=== PATIENT | female | born 1945 | race Caucasian/White ===

== ENCOUNTER 2016-08-20 13:22 | Emergency (ER) | payer MEDICARE, OTHER ==
[~2016-08-20] VITALS: Ht 160 cm; Wt 98.9 kg
[~2016-08-20 13:22] MED LIST: AMLO10TA2 PO; ASPI-586 PO; CHOL100048 PO; CINN500C2 PO; ENAL10TA PO; GLIP5TAB13 PO; LEVO75TA6 PO; LOVA40TA2 PO; METF1000 PO; MULT1TAB69 PO; OMG1KC PO; OXYC-197 PO; PIOG15TA22 PO; VITA400C58 PO
--- NOTE | 2016-08-20 14:22 | ED Fall/Injury ---
General Chief Complaint: Lower Extremity Stated Complaint: LT ANKLE INJ//FALL Nursing Triage Note: PT REPORTS TRIPPING ON SIDEWALK AND INJURING L ANKLE AND R PINKY. SHE DENIES HITTING HER HEAD OR ANY OTHER INJURY. SHE DENIES LOC. Source: patient Exam Limitations: no limitations History of Present Illness Time seen by provider: 14:22 Initial Comments 71-year-old female patient presents to the emergency Department with reports of left ankle pain and right pinky pain after tripping and falling on the sidewalk at home. Denies hitting her head. Does complain of mild right ankle pain. Denies loss of consciousness, headache, confusion. Location Injury Occurred: sidewalk outside home Occurred: this morning Injuries/Pain Location: upper extremity, lower extremity Context: tripped Loss of Consciousness: no loss of consciousness Modifying Factors: Worse With Movement Allergies and Home Medications Allergies Coded Allergies: No Known Drug Allergies (Unverified , 06/11/15) Home Medications Amlodipine Besylate 10 Mg Tablet, 10 MG PO DAILY, (Reported) Aspirin 81 Mg Tablet.dr, 81 MG PO HS, (Reported) Cholecalciferol (Vitamin D3) 1,000 Unit Capsule, 1,000 UNIT PO DAILY, (Reported) Cinnamon Bark 500 Mg Capsule, 500 MG PO BID, (Reported) Enalapril Maleate 10 Mg Tablet, 10 MG PO DAILY, (Reported) Glipizide 5 Mg Tablet, 5 MG PO HS, (Reported) Hydrocodone/Acetaminophen 1 Each Tablet, 1 EACH PO Q4H PRN for PAIN, #30 Ref 0 Prescribed by: SAVANNA ROJAS on 08/20/16 1522 Levothyroxine Sodium 75 Mcg Tablet, 75 MCG PO DAILY, (Reported) Lovastatin 40 Mg Tablet, 40 MG PO HS, (Reported) Metformin HCl 1,000 Mg Tablet, 1,000 MG PO BID, (Reported) Multivitamin 1 Each Tablet, 1 TAB PO HS, (Reported) [place] 3 Polyunsat Fatty Acids 1,000 Mg Cap, 1,000 MG PO DAILY, (Reported) Oxycodone HCl/Acetaminophen 1 Each Tablet, 1 EACH PO PRN, #60 Prescribed by: LONNIE MARSHALL on 06/19/15 0750 Pioglitazone HCl 15 Mg Tablet, 15 MG PO DAILY, (Reported) Vitamin E Mixed 400 Unit Capsule, 400 UNIT PO DAILY, (Reported) Constitutional: no symptoms reported Eyes: No Symptoms Reported Ears, Nose, Mouth, Throat: no symptoms reported Respiratory: No cough, No short of breath Cardiovascular: No chest pain, No palpitations Gastrointestinal: no symptoms reported Musculoskeletal: see HPI, No back pain, joint pain, joint swelling, No neck pain Skin: change in color (bruising to the rt hand and left ankle.) Psychiatric/Neurological: Denies Headache, Denies Numbness, Denies Paresthesia , Denies Seizure, Denies Tingling, Denies Weakness All Other Systems Reviewed Negative Unless Noted: Yes (Negative excepted noted.) Past Vfsewdv-Xlpuwk-Bpvazm Hx Patient Social History Alcohol Use: Occasionally Uses Recreational Drug Use: No Smoking Status: Never a Smoker 2nd Hand Smoke Exposure: No Recent Foreign Travel: No Contact w/Someone Who Travel: No Recent Infectious Disease Expo: No Recent Hopitalizations: No Immunizations Up To Date Tetanus Booster (TDap): More than 5yrs Date of Pneumonia Vaccine: Jun 11, 2011 Date of Influenza Vaccine: Nov 28, 2014 Surgeries HX Surgeries: Yes (kidney stone) Surgeries: Orthopedic Respiratory Hx Respiratory Disorders: No Cardiovascular Hx Cardiac Disorders: Yes Cardiac Disorders: High Cholesterol, Hypertension Neurological Hx Neurological Disorders: No Reproductive System Hx Reproductive Disorders: No Genitourinary Hx Genitourinary Disorders: Yes Genitourinary Disorders: Kidney Stones Gastrointestinal Hx Gastrointestinal Disorders: No Musculoskeletal Hx Musculoskeletal Disorders: Yes Musculoskeletal Disorders: Arthritis Endocrine Hx Endocrine Disorders: Yes Endocrine Disorders: Hypothyroidsim, Diabetes, Non-Insulin dep HEENT HX ENT Disorders: Yes (bilat cataract removal, ) Cancer Hx Cancer: No Psychosocial Hx Psychiatric Problems: No Integumentary HX Skin/Integumentary Disorder: No Blood Transfusions Hx Blood Disorders: No Reviewed Nursing Assessment Reviewed/Agree w Nursing PMH: Yes Family Medical History Significant Family History: No Pertinent Family Hx Family Medial History: Arthritis G8 BROTHER G8 SISTER Completed stroke 19 FATHER Diabetes mellitus G8 BROTHER G8 SISTER FH: breast cancer 19 MOTHER Hypertension G8 BROTHER Physical Exam Vital Signs Vital Sign - Last 12Hours 08/20/16 13:55 Temp 97.2 Pulse 74 Resp 16 B/P (MAP) 145/85 Pulse Ox 97 O2 Delivery Room Air Capillary Refill : Less Than 3 Seconds General Appearance: WD/WN, no apparent distress HEENT: PERRL/EOMI, pharynx normal, other (normocephalic, atraumatic.) Cardiovascular: normal peripheral pulses, regular rate, rhythm, no murmur Respiratory: lungs clear, normal breath sounds, no respiratory distress Peripheral Pulses: 2+ Dorsalis Pedis (R), 2+ Left Dors-Pedis (L), 2+ Radial Pulses (R), 2+ Radial Pulses (L) Extremities: normal capillary refill, pelvis stable, other (ecchymosis, swelling, and tenderness of the right fifth finger. Decreased range of motion right fifth finger. Left lateral ankle and right lateral ankle tender to palpation with mild swelling and ecchymosis.) Neurologic/Psychiatric: cellar packer II-XII nml as tested, no motor/sensory deficits, alert, normal mood/affect, oriented x 3 Skin: normal color, warm/dry, ecchymosis (right fifth finger, right lateral malleoli, and left lateral malleoli ecchymosis) Julita Coma Score Best Eye Response: (4) Open Spontaneously Best Verbal Response: (5) Oriented Best Motor Response: (6) Obeys Commands [place] Total: 15 Progress/Results/Core Measures Results/Orders My Orders Orders - SAVANNA ROJAS Ankle, Bilateral, 3 Views (08/20/16 14:30) Hand, Right, 3 Views (08/20/16 14:30) Ct Head Wo (08/20/16 14:30) Acetaminophen Tablet/Caplet (Tylenol T (08/20/16 14:30) Steplite (08/20/16 15:29) Vital Signs/I&O Vital Sign - Last 12Hours 08/20/16 13:55 Temp 97.2 Pulse 74 Resp 16 B/P (MAP) 145/85 Pulse Ox 97 O2 Delivery Room Air Blood Pressure Mean: 105 Diagnostic Imaging Diagonstic Imaging: CT Plain Films/CT/US/NM/MRI: head Comments FINDINGS: There are diffuse atrophic changes. There are no extra-axial fluid collections. No intracranial hemorrhage. No intracranial mass or mass effect. No midline shift. The ventricles are normal in size and position. There are no acute parenchymal abnormalities in the brain. IMPRESSION: Atrophic changes with no acute intracranial abnormality. Dictated on workstation # [id number] Reviewed: Reviewed by Me (radiology report reviewed by me) Diagonstic Imaging: Xray Plain Films/CT/US/NM/MRI: hand Comments FINDINGS: There is an acute fracture of the base of the fifth proximal phalanx. There are no other fractures visualized. There is diffuse degenerative change of the interphalangeal joints as well as the radiocarpal joint and first carpometacarpal joint. IMPRESSION: Acute nondisplaced fracture of base of fifth proximal phalanx. Underlying degenerative findings. Dictated on workstation # [id number] Reviewed: Reviewed by Me (radiology report reviewed by me) Diagonstic Imaging: Xray Plain Films/CT/US/NM/MRI: ankle (bilateral ankle x-ray) Comments FINDINGS: Left: There is a nondisplaced fracture of the tip of the medial malleolus on the left. There is a nondisplaced oblique fracture through the distal fibular shaft as well. The ankle mortise appears in good alignment. Posterior malleolus is intact. Right: No fractures are demonstrated. Ankle mortise is in good alignment. Moderate degenerative changes are noted both medially and laterally. There is mild soft tissue swelling. IMPRESSION: 1. Bimalleolar fracture of the left ankle with overall good alignment. 2. Right ankle shows soft tissue swelling and degenerative changes with no evidence of fracture. Dictated on workstation # [id number] Reviewed: Reviewed by Me (radiology report reviewed by me) Departure Communication Progress Notes Diagnostic study findings discussed with the patient. Patient placed in a steplite boot and aluminum finger splint. Patient does have a walker at home which she can use for assistance with ambulation. Patient to call for appointment time for follow-up with Dr. Huggins as an outpatient. Impression Impression: Primary Impression: Ankle fracture, bimalleolar, closed Qualified Codes: S82.842A - Displaced bimalleolar fracture of left lower leg, initial encounter for closed fracture Additional Impressions: Fracture of finger of right hand Qualified Codes: S62.646A - Nondisplaced fracture of proximal phalanx of right little finger, initial encounter for closed fracture Fall on same level from slipping, tripping or stumbling Qualified Codes: W01.0XXA - Fall on same level from slipping, tripping and stumbling without subsequent striking against object, initial encounter Disposition: 01 HOME, SELF-CARE Condition: Improved Departure-Patient Inst. Decision time for Depature: 15:21 Referrals: FANTASMA HUGGINS MD, WILLIAM J DO (PCP/Family) Primary Care Physician Patient Instructions: Ankle Fracture (DC), Finger Fracture (DC) Add. Discharge Instructions: All discharge instructions reviewed with patient and/or family. Voiced understanding. Medications as instructed. No ibuprofen or Aleve. Elevate the right hand and left ankle on pillows, ice pack for 20 minute intervals as needed for pain. Boot and finger splint as instructed. Follow-up with Dr. Huggins as an outpatient in the next 7 days. Call for appointment time Tuesday. Return to the emergency department for worsened symptoms or any other concerns. Scripts Hydrocodone/Acetaminophen (Hydrocodon -Acetaminophen 5-325) 1 Each Tablet 1 EACH PO Q4H Y for PAIN, #30 TAB 0 Refills Prov: SAVANNA ROJAS 08/20/16 SAVANNA ROJAS Aug 20, 2016 14:22
[2016-08-20] MEDS ORDERED: ACETAMINOPHEN 325 MG TABLET/CAPLET (TYLENOL) PO STA (14:30)
--- NOTE | 2016-08-20 15:11 | Diagnostic Imaging Report ---
INDICATION: Fall. TECHNIQUE: A noncontrast brain CT was performed. FINDINGS: There are diffuse atrophic changes. There are no extra-axial fluid collections. No intracranial hemorrhage. No intracranial mass or mass effect. No midline shift. The ventricles are normal in size and position. There are no acute parenchymal abnormalities in the brain. IMPRESSION: Atrophic changes with no acute intracranial abnormality. Dictated by: Dictated on workstation # [id number]
--- NOTE | 2016-08-20 15:13 | Diagnostic Imaging Report ---
INDICATION: Fall with right hand pain. EXAMINATION: AP, oblique, and lateral views of the right hand are obtained. FINDINGS: There is an acute fracture of the base of the fifth proximal phalanx. There are no other fractures visualized. There is diffuse degenerative change of the interphalangeal joints as well as the radiocarpal joint and first carpometacarpal joint. IMPRESSION: Acute nondisplaced fracture of base of fifth proximal phalanx. Underlying degenerative findings. Dictated by: Dictated on workstation # [id number]
--- NOTE | 2016-08-20 15:15 | Diagnostic Imaging Report ---
INDICATION: Rolled both ankles. EXAMINATION: Three views of bilateral ankles. FINDINGS: Left: There is a nondisplaced fracture of the tip of the medial malleolus on the left. There is a nondisplaced oblique fracture through the distal fibular shaft as well. The ankle mortise appears in good alignment. Posterior malleolus is intact. Right: No fractures are demonstrated. Ankle mortise is in good alignment. Moderate degenerative changes are noted both medially and laterally. There is mild soft tissue swelling. IMPRESSION: 1. Bimalleolar fracture of the left ankle with overall good alignment. 2. Right ankle shows soft tissue swelling and degenerative changes with no evidence of fracture. Dictated by: Dictated on workstation # [id number]
[2016-08-20] MEDS ORDERED: HYDR-3812 PO (15:22)
[2016-08-20 15:41] VITALS: BP 145/85
--- OUTSIDE RECORDS SUMMARY | 2016-08-23 14:56 | XMS REPORT | Continuity of Care Document ---
Author Author [facility] Organization [facility] Address Unknown Phone Unavailable Allergies Active Description Code Type Severity Reaction Onset Reported/Identified Relationship to Patient Clinical Status Yes No Allergy Information Available [id number] Drug Allergy Unknown N/A 05/26/2015 Yes No Known Drug Allergies [id number] Drug Allergy Unknown N/ A 06/11/2015 Medications Problems Date Dx Coded Attending Type Code Diagnosis Diagnosed By JOANNA JOSHI, LONNIE Mazariegos Ot Z47.1 AFTERCARE FOLLOWING JOINT REPLACEMENT HORVATH JOANNA JOSHI, LONNIE Mazariegos Ot Z96.652 PRESENCE OF LEFT ARTIFICIAL KNEE JOINT 07/03/2014 Ot 611.89 07/03/2014 Ot V15.89 07/03/2014 Ot V76.12 07/03/2014 Ot 611.89 07/03/2014 Ot V15.89 07/03/2014 Ot V76.12 07/03/2014 Ot 733.90 07/03/2014 Ot V76.12 07/03/2014 COLBY MANCIA DO Ot V76.12 07/03/2014 COLBY MANCIA DO Ot V76.12 07/03/2014 COLBY MANCIA DO Ot 719.47 07/08/2014 Ot 611.89 07/08/2014 Ot V15.89 07/08/2014 Ot V76.12 07/08/2014 Ot 611.89 07/08/2014 Ot V15.89 07/08/2014 Ot V76.12 07/08/2014 Ot 733.90 07/08/2014 Ot V76.12 07/08/2014 COLBY MANCIA DO Ot V76.12 07/08/2014 COLBY MANCIA DO Ot V76.12 07/08/2014 COLBY MANCIA DO Ot 719.47 07/10/2014 Ot 611.89 07/10/2014 Ot V15.89 07/10/2014 Ot V76.12 07/10/2014 Ot 611.89 07/10/2014 Ot V15.89 07/10/2014 Ot V76.12 07/10/2014 Ot 733.90 07/10/2014 Ot V76.12 07/10/2014 COLBY MANCIA DO Ot V76.12 07/10/2014 COLBY MANCIA DO Ot V76.12 07/10/2014 COLBY MANCIA DO Ot 719.47 07/10/2014 PADILLA MANCIA METER TESTER POLYPHASE Ot 719.47 JOINT PAIN-ANKLE 07/10/2014 PADILLA MANCIA METER TESTER POLYPHASE Ot V57.1 PHYSICAL THERAPY NEC 07/11/2014 PADILLA MANCIA METER TESTER POLYPHASE Ot 719.47 07/11/2014 PADILLA MANCIA METER TESTER POLYPHASE Ot V57.1 07/12/2014 PADILLA MANCIA METER TESTER POLYPHASE Ot 719.47 07/12/2014 PADILLA MANCIA METER TESTER POLYPHASE Ot V57.1 07/13/2014 Ot 611.89 07/13/2014 Ot V15.89 07/13/2014 Ot V76.12 07/13/2014 Ot 611.89 07/13/2014 Ot V15.89 07/13/2014 Ot V76.12 07/13/2014 Ot 733.90 07/13/2014 Ot V76.12 07/13/2014 COLBY MANCIA DO Ot V76.12 07/13/2014 COLBY MANCIA DO Ot V76.12 07/13/2014 COLBY MANCIA DO Ot 719.47 07/27/2014 COLBY MANCIA DO Ot 719.47 08/15/2014 COLBY MANCIA DO Ot 719.47 09/17/2014 Ot 611.89 09/17/2014 Ot V15.89 09/17/2014 Ot V76.12 09/17/2014 Ot 611.89 09/17/2014 Ot V15.89 09/17/2014 Ot V76.12 09/17/2014 Ot 733.90 09/17/2014 Ot V76.12 09/17/2014 COLBY MANCIA DO Ot V76.12 09/17/2014 COLBY MANCIA DO Ot V76.12 09/17/2014 MANCIARICKIE LOVETT COLBY Hill Ot 719.47 10/10/2014 MANCIARICKIE LOVETT COLBY [place] Ot V76.12 10/15/2014 GAVINO LOVETT COLBY [place] Ot 793.80 05/26/2015 Ot 611.89 05/26/2015 Ot V15.89 05/26/2015 Ot V76.12 05/26/2015 Ot 733.90 05/26/2015 Ot V76.12 05/26/2015 GAVINO LOVETT [place] Ot V76.12 05/26/2015 MANCIARICKIE LOVETT COLBY [place] Ot V76.12 05/26/2015 GAVINO LOVETT [place]BY [place] Ot 719.47 05/26/2015 GAVINO LOVETT COLBY [place] Ot V76.12 05/26/2015 GAVINO LOVETT [place] Ot 793.80 05/26/2015 GAVINO LOVETT [place] Ot Z01.810 06/11/2015 LONNIE MARSHALL MD Ot M17.12 UNILATERAL PRIMARY OSTEOARTHRITIS, LEFT 06/11/2015 LONNIE MARSHALL MD Ot R53.83 OTHER FATIGUE 06/11/2015 LONNIE MARSHALL MD Ot Z01.810 ENCOUNTER FOR PREPROCEDURAL CARDIOVASCUL 06/11/2015 LONNIE MARSHALL MD Ot Z01.811 ENCOUNTER FOR PREPROCEDURAL RESPIRATORY 06/11/2015 LONNIE MARSHALL MD Ot Z01.812 ENCOUNTER FOR PREPROCEDURAL LABORATORY E 06/11/2015 LONNIE MARSHALL MD Ot Z11.2 ENCOUNTER FOR SCREENING FOR OTHER BACTER 06/11/2015 LONNIE MARSHALL MD Ot M17.12 06/11/2015 LONNIE MARSHALL MD Ot R53.83 06/11/2015 LONNIE MARSHALL MD Ot Z01.810 06/11/2015 LONNIE MARSHALL MD Ot Z01.811 06/11/2015 LONNIE MARSHALL MD Ot Z01.812 06/11/2015 LONNIE MARSHALL MD Ot Z11.2 06/18/2015 COLBY MANCIA DO Ot Z01.810 ENCOUNTER FOR PREPROCEDURAL CARDIOVASCUL 06/23/2015 LONNIE MARSHALL MD Ot D64.9 ANEMIA, UNSPECIFIED 06/23/2015 LONNIE MARSHALL MD Ot E03.9 HYPOTHYROIDISM, UNSPECIFIED 06/23/2015 LONNIE MARSHALL MD Ot E11.9 TYPE 2 DIABETES MELLITUS WITHOUT COMPLIC 06/23/2015 LONNIE MARSHALL MD Ot E78.5 HYPERLIPIDEMIA, UNSPECIFIED 06/23/2015 LONNIE MARSHALL MD Ot E87.5 HYPERKALEMIA 06/23/2015 LONNIE MARSHALL MD Ot I10 ESSENTIAL (PRIMARY) HYPERTENSION 06/23/2015 LONNIE MARSHALL MD Ot M17.12 UNILATERAL PRIMARY OSTEOARTHRITIS, LEFT 06/23/2015 LONNIE MARSHALL MD Ot M17.9 OSTEOARTHRITIS OF KNEE, UNSPECIFIED 06/23/2015 LONNIE MARSHALL MD Ot R09.02 HYPOXEMIA 06/23/2015 LONNIE MARSHALL MD Ot T40.605A ADVERSE EFFECT OF UNSPECIFIED NARCOTICS, 07/07/2015 Ot 611.89 OTHER SPECIFIED DISORDERS OF BREAST 07/07/2015 Ot V15.89 HX-HEALTH HAZARDS NEC 07/07/2015 Ot V76.12 OTH SCREEN MAMMO-MALIGN NEOPLASM OF [place] 07/07/2015 Ot 733.90 BONE CARTILAGE DIS NOS 07/07/2015 Ot V76.12 OTH SCREEN MAMMO-MALIGN NEOPLASM OF [place] 07/07/2015 COLBY MANCIA DO Ot V76.12 OTH SCREEN MAMMO-MALIGN NEOPLASM OF [place] 07/07/2015 COLBY MANCIA DO, Ot V76.12 OTH SCREEN MAMMO-MALIGN NEOPLASM OF [place] 07/07/2015 COLBY MANCIA DO Ot 719.47 JOINT PAIN-ANKLE 07/07/2015 COLBY MANCIA DO, Ot V76.12 OTH SCREEN MAMMO-MALIGN NEOPLASM OF [place] 07/07/2015 COLBY MANCIA DO Ot 793.80 UNSPEC ABNORMAL MAMMOGRAM 07/07/2015 COLBY MANCIA DO Ot Z01.810 ENCOUNTER FOR PREPROCEDURAL CARDIOVASCUL 07/10/2015 COLBY MANCIA DO, Ot Z01.810 ENCOUNTER FOR PREPROCEDURAL CARDIOVASCUL 08/21/2015 LONNIE MARSHALL MD Ot Z47.1 AFTERCARE FOLLOWING JOINT REPLACEMENT HORVATH 08/21/2015 LONNIE MARSHALL MD Ot Z96.652 PRESENCE OF LEFT ARTIFICIAL KNEE JOINT 08/22/2015 LONNIE MARSHALL MD Ot Z47.1 AFTERCARE FOLLOWING JOINT REPLACEMENT HORVATH 08/22/2015 LONNIE MARSHALL MD Ot Z96.652 PRESENCE OF LEFT ARTIFICIAL KNEE JOINT 09/17/2015 LONNIE MARSHALL MD Ot Z47.1 AFTERCARE FOLLOWING JOINT REPLACEMENT HORVATH 09/17/2015 LONNIE MARSHALL MD Ot Z96.652 PRESENCE OF LEFT ARTIFICIAL KNEE JOINT 10/16/2015 Ot 611.89 OTHER SPECIFIED DISORDERS OF BREAST 10/16/2015 Ot V15.89 HX-HEALTH HAZARDS NEC 10/16/2015 Ot V76.12 OTH SCREEN MAMMO-MALIGN NEOPLASM OF [place] 10/16/2015 Ot 733.90 BONE CARTILAGE DIS NOS 10/16/2015 Ot V76.12 OTH SCREEN MAMMO-MALIGN NEOPLASM OF [place] 10/16/2015 COLBY MANCIA DO, Ot V76.12 OTH SCREEN MAMMO-MALIGN NEOPLASM OF [place] 10/16/2015 COLBY MANCIA DO Ot V76.12 OTH SCREEN MAMMO-MALIGN NEOPLASM OF [place] 10/16/2015 COLBY MANCIA DO Ot 719.47 JOINT PAIN-ANKLE 10/16/2015 COLBY MANCIA DO, Ot V76.12 OTH SCREEN MAMMO-MALIGN NEOPLASM OF [place] 10/16/2015 COLBY MANCIA DO Ot 793.80 UNSPEC ABNORMAL MAMMOGRAM 10/16/2015 COLBY MANCIA DO Ot Z01.810 ENCOUNTER FOR PREPROCEDURAL CARDIOVASCUL 10/16/2015 COLBY MANCIA DO Ot Z12.31 ENCNTR SCREEN MAMMOGRAM FOR MALIGNANT NE 10/16/2015 COLBY MANCIA DO Ot Z12.31 ENCNTR SCREEN MAMMOGRAM FOR MALIGNANT NE 10/17/2015 COLBY MANCIA DO, Ot Z12.31 ENCNTR SCREEN MAMMOGRAM FOR MALIGNANT NE 10/29/2015 PADILLA MANCIA Ot R92.8 OTH ABN AND INCONCLUSIVE FINDINGS ON DX 11/07/2015 COLBY MANCIA DO, Ot Z12.31 ENCNTR SCREEN MAMMOGRAM FOR MALIGNANT NE 11/20/2015 MANCIA, PADILLA L METER TESTER POLYPHASE Ot R92.8 OTH ABN AND INCONCLUSIVE FINDINGS ON DX 11/26/2015 PADILLA MANCIA METER TESTER POLYPHASE Ot R92.8 OTH ABN AND INCONCLUSIVE FINDINGS ON DX 08/20/2016 Ot 733.90 BONE CARTILAGE DIS NOS 08/20/2016 Ot V76.12 OTH SCREEN MAMMO-MALIGN NEOPLASM OF [place] 08/20/2016 COLBY MANCIA DO Ot V76.12 OTH SCREEN MAMMO-MALIGN NEOPLASM OF [place] 08/20/2016 COLBY MANCIA DO Ot V76.12 OTH SCREEN MAMMO-MALIGN NEOPLASM OF [place] 08/20/2016 COLBY MANCIA DO Ot 719.47 JOINT PAIN-ANKLE 08/20/2016 COLBY MANCIA DO Ot V76.12 OTH SCREEN MAMMO-MALIGN NEOPLASM OF [place] 08/20/2016 COLBY MANCIA DO Ot 793.80 UNSPEC ABNORMAL MAMMOGRAM 08/20/2016 COLBY MANCIA DO Ot Z01.810 ENCOUNTER FOR PREPROCEDURAL CARDIOVASCUL 08/20/2016 COLBY MANCIA DO Ot Z12.31 ENCNTR SCREEN MAMMOGRAM FOR MALIGNANT NE 08/20/2016 PADILLA MANCIA METER TESTER POLYPHASE Ot R92.8 OTH ABN AND INCONCLUSIVE FINDINGS ON DX Procedures Code Description Performed By Performed On [id number] REPLACE OF L KNEE JT WITH SYNTH SUB, JEY 06/18/2015 Results Encounters ACCT No. Visit Date/Time Discharge Status Pt. Type Provider Facility Loc./Unit Complaint [id number] 08/20/2016 13:24:00 2016 15:41:00 DIS Emergency SAVANNA CRAMER [facility] ER LT ANKLE INJ//FALL [id number] 08/01/2015 10:15:00 2015 08:49:00 DIS Outpatient LONNIE MARSHALL MD [facility] REHAB S/P L TKR [id number] 06/18/2015 05:55:00 2015 10:45:00 DIS Inpatient LONNIE MARSHALL MD [facility] 4TH LEFT KNEE SEVERE OSTEOARTHRITIS [id number] 06/11/2015 09:19:00 2015 10:30:00 DIS Outpatient LONNIE MARSHALL MD [facility] PREOP LEFT KNEE SEVERE OSTEOARTHRITIS [id number] 09/20/2014 08:04:00 2014 23:59:59 CLS Outpatient COLBY MANCIA DO [facility] RAD ABNORMAL MAMMO [id number] 09/17/2014 12:38:00 2014 23:59:59 CLS Outpatient COLBY MANCIA DO [facility] RAD SCREENING [id number] 07/10/2014 15:54:00 2014 17:00:00 DIS Outpatient PADILLA MANCIA [facility] REHAB R ANKLE PAIN [id number] 06/26/2014 16:52:00 2014 23:59:59 CLS Outpatient COLBY MANCIA DO [facility] RAD RT ANKLE PAIN, [id number] 08/23/2013 10:28:00 2013 23:59:59 CLS Outpatient COLBY MANCIA DO [facility] RAD SCREENING [id number] 08/22/2012 10:30:00 2012 23:59:59 CLS Outpatient COLBY MANCIA DO [facility] RAD SCREENING [id number] 10/27/2015 08:11:00 ACT Outpatient PADILLA MANCIA [facility] RAD ABNORMAL MAMMO- DIAGNOSTIC [id number] 10/16/2015 10:02:00 ACT Outpatient COLBY MANCIA DO [facility] RAD SCREENING [id number] 06/20/2015 09:14:00 PEN Preadmit KENNEDI MILLAN DO [id number] 05/26/2015 06:42:00 ACT Outpatient COLBY MANCIA DO [facility] CARD PRE OP TESTING FOR KNEE REPLACEMENT [id number] 08/12/2011 11:26:00 Document Registration [id number] 05/10/2011 10:20:00 Document Registration [id number] 07/16/2010 10:12:00 Document Registration [id number] 06/04/2009 14:07:00 Document Registration
--- OUTSIDE RECORDS SUMMARY | 2016-08-23 14:56 | XMS REPORT ---
Author Author TRACEY PASCAL [facility] eClinicalWorks Address Unknown Phone Unavailable Care Team Providers Care Automobile Bumper Straightener Name Role Phone TRACEY PASCAL CP Unavailable Allergies, Adverse Reactions, Alerts Substance Reaction Event Type N.K.D.A. Info Not Available Non Drug Allergy Problems Problem Type Condition Code Onset Dates Condition Status Assessment Encounter for dental examination Z01.20 Active Problem Encounter for dental examination Z01.20 Active Medications Medication Code System Code Instructions Start Date End Date Status Dosage Aspirin [facility] [id number] 81 MG Orally Once a day 1 tablet Metformin HCl [facility] [address]-00 1000 MG Orally Twice a day 1 tablet with meals Lovastatin [facility] [address]-06 40 MG Orally Once a day 1 tablet with a meal Amlodipine Besylate [facility] [address]-15 10 MG Orally Once a day 1 tablet Levothyroxine Sodium [facility] [address]-26 50 MCG Orally Once a day 1 tablet Pioglitazone HCl [facility] [address]-70 15 MG Orally Once a day 1 tablet GlipiZIDE [facility] [address]-58 5 MG Orally Once a day 1 tablet Enalapril Maleate [facility] [address]-08 10 MG Orally Once a day 1 tablet Procedures Procedure Coding System Code Date Periodontal maint procedures CPT-4 D4910 Oct 15, 2015 Vital Signs Date/Time: Oct 15, 2015 Blood Pressure Diastolic 76 mmHg Blood Pressure Systolic 118 mmHg Results No Known Results Summary Purpose eClinicalWorks Submission
== END 2016-08-20 15:41 | disposition home or self-care (01) ==
LOC: EDUNIT# 13:22 → ER 13:24
DX: S82.842A Displaced bimalleolar fracture of left lower leg, initial encounter for closed fracture (principal); S62.646A Nondisplaced fracture of proximal phalanx of right little finger, initial encounter for closed fracture; E03.9 Hypothyroidism, unspecified; I10 Essential (primary) hypertension; E11.9 Type 2 diabetes mellitus without complications; Z87.39 Personal history of other diseases of the musculoskeletal system and connective tissue; Z79.82 Long term (current) use of aspirin; Z79.84 Long term (current) use of oral hypoglycemic drugs; W01.0XXA Fall on same level from slipping, tripping and stumbling without subsequent striking against object, initial encounter; Y92.009 Unspecified place in unspecified non-institutional (private) residence as the place of occurrence of the external cause
CPT/HCPCS: 70450; 73130; 99283

== ENCOUNTER → 2016-11-16 | Outpatient (CLI) | payer MEDICARE, OTHER ==
[~2016-11-16] MED LIST changes: +HYDR-3812 PO
--- NOTE | 2016-11-17 18:50 | Diagnostic Imaging Report ---
Bilateral screening mammogram 2D views with tomosynthesis. The current study was also evaluated with a Computer Aided Detection (CAD) system. INDICATION: Screening. No current complaints stated on the questionnaire. COMPARISON: 10/26/2015. FINDINGS: The breasts are composed of heterogeneously dense parenchyma which may decrease mammographic sensitivity. There are calcifications seen in both breasts similar to the prior exams and there is a biopsy clip in the upper aspect of the left breast seen. Allowing for technique and positional differences, no suspicious change is seen. IMPRESSION: Dense breasts with no definite change. ACR BI-RADS Category 2: Benign findings. Result letter will be mailed to the patient. Note: At least 10% of breast cancer is not imaged by mammography. Dictated by: Dictated on workstation # [id number]
== END ==
LOC: RAD 09:37
PROVIDERS: ATTEND Internal Medicine
DX: Z12.31 Encounter for screening mammogram for malignant neoplasm of breast (principal)
CPT/HCPCS: 77067

== ENCOUNTER 2017-03-30 22:29 | Emergency (ER) | payer MEDICARE, OTHER ==
[~2017-03-30] VITALS: Ht 160 cm; Wt 95.3 kg
[~2017-03-30 22:29] MED LIST changes: +ACHD5005 PO; -HYDR-3812 PO
--- OUTSIDE RECORDS SUMMARY | 2017-03-30 23:42 | XMS REPORT ---
Author Author DANTE HYMAN [facility] Address [address] [place] [address] Care Team Providers Care Asp Net Developer Name Role Phone DANTE HYMAN Unavailable PROBLEMS Type Condition ICD9-CM Code [id number] Code Onset Dates Condition Status SNOMED Code Problem Encounter for dental examination Z01.20 Active [id number] ALLERGIES No Information SOCIAL HISTORY Never Assessed PLAN OF CARE VITAL SIGNS MEDICATIONS Unknown Medications RESULTS No Results PROCEDURES Procedure Date Ordered Result Body Site ZOSTER (ZOSTAVAX) Apr 16, 2016 SINGLE IMMUNIZATION ADMIN Apr 16, 2016 IMMUNIZATIONS Vaccine Route Administration Date Status ZOSTER (ZOSTAVAX) SC Subcutaneous Apr 16, 2016 Administered MEDICAL (GENERAL) HISTORY Type Description Date Medical History High Blood pressure Medical History Thyroid Problems Medical History Diabetes Type II Hospitalization History Kidney stones 2007
--- OUTSIDE RECORDS SUMMARY | 2017-03-30 23:43 | XMS REPORT | Continuity of Care Document ---
Author Author [facility] Organization [facility] Address Unknown Phone Unavailable Allergies Active Description Code Type Severity Reaction Onset Reported/Identified Relationship to Patient Clinical Status Yes No Allergy Information Available [id number] Drug Allergy Unknown N/A 2015 Yes No Known Drug Allergies [id number] Drug Allergy Unknown N/A 06/11/2015 Medications There is no data. Problems Date Dx Coded Attending Type Code [...] MANCIA DO Ot 719.47 07/10/2014 PADILLA MANCIA SPEECH CLINICIAN Ot 719.47 JOINT PAIN-ANKLE 07/10/2014 PADILLA MANCIA SPEECH CLINICIAN Ot V57.1 PHYSICAL THERAPY NEC 07/11/2014 PADILLA MANCIA SPEECH CLINICIAN Ot 719.47 07/11/2014 PADILLA MANCIA SPEECH CLINICIAN Ot V57.1 07/12/2014 PADILLA MANCIA SPEECH CLINICIAN Ot 719.47 07/12/2014 PADILLA MANCIA SPEECH CLINICIAN Ot V57.1 07/13/2014 Ot 611.89 07/13/2014 Ot [...] 09/17/2014 COLBY MANCIA DO Ot V76.12 09/17/2014 GAVINO LOVETT COLBY Hill Ot V76.12 09/17/2014 MANCIA DO COLBY Hill Ot 719.47 10/10/2014 MANCIA DO COLBY Hill Ot V76.12 10/15/2014 MANCIARICKIE LOVETT COLBY Hill Ot 793.80 05/26/2015 Ot 611.89 05/26/2015 Ot V15.89 05/26/2015 Ot V76.12 05/26/2015 Ot 733.90 05/26/2015 Ot V76.12 05/26/2015 MANCIA DO COLBY Hill Ot V76.12 05/26/2015 MANCIA DO COLBY [place] Ot V76.12 05/26/2015 MANCIARICKIE LOVETT COLBY [place] Ot 719.47 05/26/2015 GAVINO LOVETT COLBY Hill Ot V76.12 05/26/2015 GAVINO LOVETT COLBY Hill Ot 793.80 05/26/2015 GAVINO LOVETT COLBY Hill Ot Z01.810 06/11/2015 JOANNA JOSHI, LONNIE Mazariegos Ot M17.12 UNILATERAL PRIMARY OSTEOARTHRITIS, LEFT 06/11/2015 JOANNA JOSHI, LONNIE Mazariegos Ot R53.83 OTHER FATIGUE 06/11/2015 JOANNA JOSHI, LONNIE Mazariegos Ot Z01.810 ENCOUNTER FOR PREPROCEDURAL CARDIOVASCUL 06/11/2015 [...] Ot 719.47 JOINT PAIN-ANKLE 07/07/2015 COLBY MANCIA DO Ot V76.12 OTH SCREEN MAMMO-MALIGN NEOPLASM OF [place] 07/07/2015 COLBY MANCIA DO Ot 793.80 UNSPEC ABNORMAL MAMMOGRAM 07/07/2015 COLBY MANCIA DO Ot Z01.810 ENCOUNTER FOR PREPROCEDURAL CARDIOVASCUL 07/10/2015 COLBY MANCIA DO, Ot Z01.810 ENCOUNTER FOR PREPROCEDURAL CARDIOVASCUL 08/21/2015 LONNIE MARSHALL MD Ot Z47.1 AFTERCARE FOLLOWING JOINT REPLACEMENT HORVATH 08/21/2015 JOANNA JOSHI, LONNIE Mazariegos Ot Z96.652 PRESENCE OF LEFT ARTIFICIAL KNEE JOINT 08/22/2015 JOANNA JOSHI, LONNIE Mazariegos Ot Z47.1 AFTERCARE [...] ENCOUNTER FOR PREPROCEDURAL CARDIOVASCUL 10/16/2015 COLBY MANCIA DO, Ot Z12.31 ENCNTR SCREEN MAMMOGRAM FOR MALIGNANT NE 10/16/2015 COLBY MANCIA DO, Ot Z12.31 ENCNTR SCREEN MAMMOGRAM FOR MALIGNANT NE 10/17/2015 COLBY MANCIA DO, Ot Z12.31 ENCNTR SCREEN MAMMOGRAM FOR MALIGNANT NE 10/29/2015 PADILLA MANCIA Ot R92.8 OTH ABN AND INCONCLUSIVE FINDINGS ON DX 11/07/2015 COLBY MANCIA DO, Ot Z12.31 ENCNTR SCREEN MAMMOGRAM FOR MALIGNANT NE 11/20/2015 PADILLA MANCIA L SPEECH CLINICIAN Ot R92.8 OTH ABN AND INCONCLUSIVE FINDINGS ON DX 11/26/2015 PADILLA MANCIA [facility] Ot R92.8 OTH ABN AND INCONCLUSIVE FINDINGS ON DX 08/20/2016 SAVANNA CRAMER Ot E03.9 HYPOTHYROIDISM, UNSPECIFIED 08/20/2016 SAVANNA CRAMER Ot E11.9 TYPE 2 DIABETES MELLITUS WITHOUT COMPLIC 08/20/2016 SAVANNA CRAMER Ot I10 ESSENTIAL (PRIMARY) HYPERTENSION 08/20/2016 SAVANNA CRAMER Ot M25.572 PAIN IN LEFT ANKLE AND JOINTS OF LEFT FO 08/20/2016 SAVANNA CRAMER Ot S62.646A NONDISP FX OF PROXIMAL PHALANX OF RIGHT 08/20/2016 SAVANNA CRAMER Ot S82.842A DISPLACED BIMALLEOLAR FRACTURE OF LEFT L 08/20/2016 SAVANNA CRAMER Ot W01.0XXA FALL SAME LEV FROM SLIP/TRIP W/O STRIKE 08/20/2016 SAVANNA CRAMER Ot Y92.[address] [facility] [address] IN [facility] NON-INSTITUT (PRIVATE 08/20/2016 SAVANNA CRAMER Ot Z79.82 [employer] (CURRENT) USE OF ASPIRIN 08/20/2016 SAVANNA CRAMER Ot Z79.84 [employer]CR[employer] CARPENTER (CURRENT) USE OF ORAL HYPOGLYC 08/20/2016 SAVANNA CRAMER Ot Z87.39 PERSONAL HISTORY OF DISEASES OF THE MS S 08/20/2016 Ot 733.90 BONE CARTILAGE DIS NOS [...] MAMMOGRAM FOR MALIGNANT NE 08/20/2016 PADILLA MANCIA Ot R92.8 OTH ABN AND INCONCLUSIVE FINDINGS ON DX 11/24/2016 COLBY MANCIA DO Ot Z12.31 ENCNTR SCREEN MAMMOGRAM FOR MALIGNANT NE 12/09/2016 COLBY MANCIA DO Ot Z12.31 ENCNTR SCREEN MAMMOGRAM FOR MALIGNANT NE Procedures Code Description Performed By Performed On [id number] REPLACE OF L KNEE JT WITH SYNTH SUB, JEY 06/18/2015 Results There is no data. Encounters ACCT No. Visit Date/Time Discharge Status Pt. Type Provider Facility Loc./Unit Complaint [id number] 11/16/2016 09:37:00 11/16/2016 23:59:59 CLS Outpatient COLBY MANCIA DO [facility] RAD SCREENING [id number] 08/20/2016 13:24:00 08/20/2016 15:41:00 DIS Emergency SAVANNA CRAMER [facility] ER LT ANKLE INJ//FALL [id number] 10/27/2015 08:11:00 10/27/2015 23:59:59 CLS Outpatient PADILLA MANCIA [facility] RAD ABNORMAL MAMMO- DIAGNOSTIC [id number] 10/16/2015 10:02:00 10/16/2015 23:59:59 CLS Outpatient COLBY MANCIA DO [facility] RAD SCREENING [id number] 08/01/2015 10:15:00 09/17/2015 08:49:00 DIS Outpatient LONNIE MARSHALL MD [facility] REHAB S/P L TKR [id number] 06/18/2015 05:55:00 06/23/2015 10:45:00 DIS Inpatient LONNIE MARSHALL MD [facility] 4TH LEFT KNEE SEVERE OSTEOARTHRITIS [id number] 06/20/2015 09:14:00 06/20/2015 23:59:59 CLS Preadmit KENNEDI MILLAN DOB [id number] 06/11/2015 09:19:00 06/11/2015 10:30:00 DIS Outpatient LONNIE MARSHALL MD [facility] PREOP LEFT KNEE SEVERE OSTEOARTHRITIS [id number] 05/26/2015 06:42:00 05/26/2015 23:59:59 CLS Outpatient COLBY MANCIA DO [facility] CARD PRE OP TESTING FOR KNEE REPLACEMENT [id number] 09/20/2014 08:04:00 09/20/2014 23:59:59 CLS Outpatient COLBY MANCIA DO [facility] RAD ABNORMAL MAMMO [id number] 09/17/2014 12:38:00 09/17/2014 23:59:59 CLS Outpatient COLBY MANCIA DO [facility] RAD SCREENING [id number] 07/10/2014 15:54:00 07/10/2014 17:00:00 DIS Outpatient PADILLA MANCIA [facility] REHAB R ANKLE PAIN [id number] 06/26/2014 16:52:00 06/26/2014 23:59:59 CLS Outpatient COLBY MANCIA DO [facility] RAD RT ANKLE PAIN, [id number] 08/23/2013 10:28:00 08/23/2013 23:59:59 CLS Outpatient COLBY MANCIA DO [facility] RAD SCREENING [id number] 08/22/2012 10:30:00 08/22/2012 23:59:59 CLS Outpatient COLBY MANCIA DO [facility] RAD SCREENING [id number] 08/12/2011 11:26:00 Document Registration [id number] 05/10/2011 10:20:00 Document Registration [id number] 07/16/2010 10:12:00 Document Registration [id number] 06/04/2009 14:07:00 Document Registration
[2017-03-31] MEDS ORDERED: NS IV 1000 ML 1,000 ML IV ONE (02:28)
[2017-03-31 02:36] LABS: BILIRUBIN,URINE NEGATIVE (NEGATIVE); CLARITY,URINE VERY CLOUDY; GLUCOSE, URINE (UA) 4+ (NEGATIVE); KETONES,URINE NEGATIVE (NEGATIVE); LEUKOCYTE ESTERASE ,URINE 3+ (NEGATIVE); NITRITE,URINE NEGATIVE (NEGATIVE); PH,URINE 5 (5-9); PROTEIN,URINE 3+ (NEGATIVE); UROBILINOGEN,URINE NORMAL (NORMAL)
[2017-03-31 02:37] LABS: BASOPHILS % (AUTO) 0 % (0-10); EOSINOPHILS % (AUTO) 0 % (0-10); HEMATOCRIT 40 % (35-52); HEMOGLOBIN 13.3 G/DL (11.5-16.0); LYMPHOCYTES # (AUTO) 1.1 X 10^3 (1.0-4.0); MEAN CORPUSCULAR HEMOGLOBIN 30 PG (25-34); MEAN CORPUSCULAR HGB CONC 34 G/DL (32-36); MEAN CORPUSCULAR VOLUME 89 FL (80-99); MEAN PLATELET VOLUME 10.6 FL (7.4-10.4); MONOCYTES # (AUTO) 0.6 X 10^3 (0.0-1.0); MONOCYTES % (AUTO) 5 % (0-12); NEUTROPHILS # (AUTO) 10.4 X 10^3 (1.8-7.8); PLATELET COUNT 287 10^3/uL (130-400); RED BLOOD COUNT 4.45 10^6/uL (4.35-5.85); RED CELL DISTRIBUTION WIDTH 14.7 % (10.0-14.5); WHITE BLOOD COUNT 12.1 10^3/uL (4.3-11.0)
[2017-03-31 02:38] LABS: COLOR,URINE BROWN
[2017-03-31 02:38] LABS: LYMPHOCYTES % (AUTO) 10 % (12-44); NEUTROPHILS % (AUTO) 85 % (42-75)
[2017-03-31] MEDS ORDERED: KETOROLAC 30 MG/ML VIAL IVP STA (02:40)
[2017-03-31 02:41] LABS: RBC,URINE TNTC /HPF
[2017-03-31 02:42] LABS: BACTERIA,URINE LARGE /HPF; SQUAMOUS EPITHELIAL CELL,UR RARE /HPF
[2017-03-31] MEDS ORDERED: ONDANSETRON 4 MG/2 ML (SDV) Z0FRAN IVP ONE (02:45)
[2017-03-31 02:49] LABS: ALBUMIN 4.2 GM/DL (3.2-4.5); BILIRUBIN,TOTAL 0.5 MG/DL (0.1-1.0); CALCIUM 9.9 MG/DL (8.5-10.1); CREATININE SERUM 1.47 MG/DL (0.60-1.30); POTASSIUM 4.7 MMOL/L (3.6-5.0); TOTAL PROTEIN 7.4 GM/DL (6.4-8.2)
[2017-03-31] MEDS ORDERED: RX-ONDANSETRON 4 MG ODT (ZOFRAN) PPK #4 PO STA (04:47)
[2017-03-31] MEDS ORDERED: TAMS0.4C98 PO (04:53)
[2017-03-31] MEDS ORDERED: HYDR-87 PO (04:53)
[2017-03-31] MEDS ORDERED: NITR-65 PO (04:53)
[2017-03-31] MEDS ORDERED: ONDA4TAB8 PO (04:53)
--- NOTE | 2017-03-31 04:53 | ED Abdominal Pain ---
General Chief Complaint: Abdominal/GI Problems Stated Complaint: ABD PAIN Nursing Triage Note: PT STATES RT SIDED ABDOMINAL PAIN RADIATING TO HER BACK. STATES NAUSEATED. STATES URINE HAS BEEN DARK IN COLOR Sepsis Screen: No Definite Risk Allergies and Home Medications Allergies Coded Allergies: No Known Drug Allergies (Unverified , 06/11/15) Home Medications Amlodipine Besylate 10 Mg Tablet, 10 MG PO DAILY, (Reported) Aspirin 81 Mg Tablet.dr, 81 MG PO HS, (Reported) Cholecalciferol (Vitamin D3) 1,000 Unit Capsule, 1,000 UNIT PO DAILY, (Reported) Cinnamon Bark 500 Mg Capsule, 500 MG PO BID, (Reported) Enalapril Maleate 10 Mg Tablet, 10 MG PO DAILY, (Reported) Glipizide 5 Mg Tablet, 5 MG PO HS, (Reported) Hydrocodone Bit/Acetaminophen 1 Each Tablet, 1 EACH PO Q4H PRN for PAIN, #30 Ref 0 Prescribed by: SAVANNA ROJAS on 08/20/16 1522 Levothyroxine Sodium 75 Mcg Tablet, 75 MCG PO DAILY, (Reported) Lovastatin 40 Mg Tablet, 40 MG PO HS, (Reported) Metformin HCl 1,000 Mg Tablet, 1,000 MG PO BID, (Reported) Multivitamin 1 Each Tablet, 1 TAB PO HS, (Reported) [place] 3 Polyunsat Fatty Acids 1,000 Mg Cap, 1,000 MG PO DAILY, (Reported) Oxycodone HCl/Acetaminophen 1 Each Tablet, 1 EACH PO PRN, #60 Prescribed by: LONNIE MARSHALL on 06/19/15 0750 Pioglitazone HCl 15 Mg Tablet, 15 MG PO DAILY, (Reported) Vitamin E Mixed 400 Unit Capsule, 400 UNIT PO DAILY, (Reported) Past Kcsabts-Vrhuem-Dgfrnz Hx Patient Social History Alcohol Use: Occasionally Uses Recreational Drug Use: No Smoking Status: Never a Smoker 2nd Hand Smoke Exposure: No Recent Foreign Travel: No Contact w/Someone Who Travel: No Recent Infectious Disease Expo: No Recent Hopitalizations: No Immunizations Up To Date Tetanus Booster (TDap): More than 5yrs Date of Pneumonia Vaccine: Jun 11, 2011 Date of Influenza Vaccine: Nov 25, 2016 Surgeries History of Surgeries: Yes (kidney stone) Surgeries: Orthopedic Respiratory History of Respiratory Disorde: No Cardiovascular History of Cardiac Disorders: Yes Cardiac Disorders: High Cholesterol, Hypertension Neurological History of Neurological Disord: No Reproductive System Hx Reproductive Disorders: No Genitourinary Genitourinary Disorders: Kidney Stones Gastrointestinal History of Gastrointestinal Di: No Musculoskeletal History of Musculoskeletal Dis: Yes Musculoskeletal Disorders: Arthritis Endocrine History of Endocrine Disorders: Yes Endocrine Disorders: Hypothyroidsim, Diabetes, Non-Insulin dep Cancer History of Cancer: No Psychosocial History of Psychiatric Problem: No Integumentary History of Skin or Integumenta: No Blood Transfusions History of Blood Disorders: No Family Medical History Significant Family History: No Pertinent Family Hx Family Medial History: Arthritis G8 BROTHER G8 SISTER Completed stroke 19 FATHER Diabetes mellitus G8 BROTHER G8 SISTER FH: breast cancer 19 MOTHER Hypertension G8 BROTHER Physical Exam Vital Signs VS - Last 72 Hours, by Label 03/31/17 01:18 Temp 97.6 Pulse 77 Resp 20 B/P (MAP) 175/101 (125) Pulse Ox 94 O2 Delivery Room Air Capillary Refill : Less Than 3 Seconds Progress/Results/Core Measures Results/Orders Lab Results Laboratory Tests Test 03/31/17 02:07 03/31/17 02:15 Range/Units Urine Color BROWN H Urine Clarity VERY CLOUDY H Urine pH 5 5-9 Urine Specific [place] 1.015 L 1.016-1.022 Urine Protein 3+ H NEGATIVE Urine Glucose (UA) 4+ H NEGATIVE Urine Ketones NEGATIVE NEGATIVE Urine Nitrite NEGATIVE NEGATIVE Urine Bilirubin NEGATIVE NEGATIVE Urine Urobilinogen NORMAL NORMAL MG/DL Urine Leukocyte Esterase 3+ H NEGATIVE Urine RBC (Auto) 5+ H NEGATIVE Urine RBC TNTC H /HPF Urine WBC 10-25 H /HPF Urine Squamous Epithelial Cells RARE /HPF Urine Crystals NONE /LPF Urine Bacteria LARGE H /HPF Urine Casts NONE /LPF Urine Mucus NEGATIVE /LPF Urine Culture Indicated YES White Blood Count 12.1 H 4.3-11.0 10^3/uL Red Blood Count 4.45 4.35-5.85 10^6/uL Hemoglobin 13.3 11.5-16.0 G/DL Hematocrit 40 35-52 % Mean Corpuscular Volume 89 80-99 FL Mean Corpuscular Hemoglobin 30 25-34 PG Mean Corpuscular Hemoglobin Concent 34 32-36 G/DL Red Cell Distribution Width 14.7 H 10.0-14.5 % Platelet Count 287 130-400 10^3/uL Mean Platelet Volume 10.6 H 7.4-10.4 FL Neutrophils (%) (Auto) 85 H 42-75 % Lymphocytes (%) (Auto) 10 L 12-44 % Monocytes (%) (Auto) 5 0-12 % Eosinophils (%) (Auto) 0 0-10 % Basophils (%) (Auto) 0 0-10 % Neutrophils # (Auto) 10.4 H 1.8-7.8 X 10^3 Lymphocytes # (Auto) 1.1 1.0-4.0 X 10^3 Monocytes # (Auto) 0.6 0.0-1.0 X 10^3 Eosinophils # (Auto) 0.0 0.0-0.3 10^3/uL Basophils # (Auto) 0.0 0.0-0.1 10^3/uL Sodium Level 139 135-145 MMOL/L Potassium Level 4.7 3.6-5.0 MMOL/L Chloride Level 104 98-107 MMOL/L Carbon Dioxide Level 20 L 21-32 MMOL/L Anion Gap 15 H 5-14 MMOL/L Blood Urea Nitrogen 24 H 7-18 MG/DL Creatinine 1.47 H 0.60-1.30 MG/DL Estimat Glomerular Filtration Rate 35 BUN/Creatinine Ratio 16 Glucose Level 392 H 70-105 MG/DL Calcium Level 9.9 8.5-10.1 MG/DL Total Bilirubin 0.5 0.1-1.0 MG/DL Aspartate Amino Transf (AST/SGOT) 15 5-34 U/L Alanine Aminotransferase (ALT/SGPT) 22 0-55 U/L Alkaline Phosphatase 94 40-136 U/L Total Protein 7.4 6.4-8.2 GM/DL Albumin 4.2 3.2-4.5 GM/DL Amylase Level 80 25-125 U/L Lipase 19 8-78 U/L My Orders Orders - BENJI HASTINGS DO Ct Abd/Pelvis Wo(Kidney Stone) (03/31/17 02:28) Amylase (03/31/17 02:28) Cbc With Automated Diff (03/31/17 02:28) Comprehensive Metabolic Panel (03/31/17 02:28) Lipase (03/31/17 02:28) Ua Culture If Indicated (03/31/17 02:28) Acute Abd Series (03/31/17 02:28) Saline Lock/Iv-Start (03/31/17 02:28) Saline Lock/Iv-Start (03/31/17 02:28) Ns Iv 1000 Ml (Sodium Chloride 0.9%) (03/31/17 02:28) Ketorolac Injection (Toradol Injection) (03/31/17 02:40) Ondansetron Injection (Zofran Injectio (03/31/17 02:45) Urine Culture (03/31/17 02:07) Medications Given in ED Current Medications Medications Dose Ordered Sig/Tete Route Start Time Stop Time Status Last Admin Dose Admin Ondansetron HCl 4 mg ONCE ONCE IVP 03/31/17 02:45 03/31/17 02:46 DC 03/31/17 03:15 4 MG Sodium Chloride 1,000 ml @ 0 mls/hr Q0M ONCE IV 03/31/17 02:28 03/31/17 02:31 DC 03/31/17 02:34 1,000 MLS/HR Vital Signs/I&O Vital Sign - Last 12Hours 03/31/17 01:18 Temp 97.6 Pulse 77 Resp 20 B/P (MAP) 175/101 (125) Pulse Ox 94 O2 Delivery Room Air Blood Pressure Mean: 125 Departure Impression Impression: Primary Impression: Right ureteral calculus Additional Impressions: UTI (urinary tract infection) Cholelithiasis Disposition: HOME, SELF-CARE Condition: Improved Departure-Patient Inst. Referrals: COLBY MANCIA DO (PCP/Family) Primary Care Physician JERMAN REEDER MD Patient Instructions: Kidney Stones (DC), Urinary Tract Infection, Adult (DC) Add. Discharge Instructions: LOTS OF FLUIDS STRAIN ALL URINE--RETURN ANY STONES TO UROLOGIST OFFICE FOLLOW UP WITH DR. REEDER OR UROLOGIST OF CHOICE THIS WEEK FOR FURTHER CARE OF KIDNEY STONES FOLLOW UP WITH DR. MONACO OR SURGEON OF CHOICE IN 1-2 WEEKS FOR FURTHER CARE OF GALLSTONES FOLLOW UP WITH DR. MANCIA NEEDED All discharge instructions reviewed with patient and/or family. Voiced understanding. Scripts Ondansetron (Zofran Odt) 4 Mg Tab.rapdis 4 MG PO Q4H for Nausea/Vomiting, #10 TAB Prov: BENJI HASTINGS DO 03/31/17 Hydrocodone/Ibuprofen (Hydrocodone-Ibuprofen 7.5-200) 1 Each Tablet 1-2 EACH PO Q4H for Pain, #20 TAB Prov: BENJI HASTINGS DO 03/31/17 Tamsulosin HCl (Flomax) 0.4 Mg Cap 0.4 MG PO DAILY, #10 CAP Prov: BENJI HASTINGS DO 03/31/17 Nitrofurantoin Monohyd/M-Cryst (Macrobid 100 mg Capsule) 100 Mg Capsule 100 MG PO BID, #20 CAP Prov: BENJI HASTINGS DO 03/31/17 BENJI HASTINGS DO Mar 31, 2017 04:53
[2017-03-31] MEDS ORDERED: TAMSULOSIN 0.4 MG (FLOMAX) CAP PO SCH (05:00)
[2017-03-31] MEDS ORDERED: cefTRIAXone 1 GM (ROCEPHIN) VIAL ONE (05:00)
[2017-03-31] MEDS ORDERED: cefTRIAXone INJECTION 1,000 MG in NS (IVPB) 50 ML IV ONE (05:00)
[2017-03-31] MEDS ORDERED: RX-HYDROCODONE/APAP 5/325 MG #4 TAB PK PO ONE (05:00)
[2017-03-31] MEDS ORDERED: RX-HYDROCODONE/APAP 5/325 MG #4 TAB PK PO PRN (05:00)
[2017-03-31] MEDS ORDERED: NS (IVPB) 50 ML ONE (05:00)
[2017-03-31] MEDS ORDERED: ALFUZOSIN HCL 10 MG TAB (UROXATRAL) PO ONE (05:10)
--- NOTE | 2017-03-31 05:33 | Diagnostic Imaging Report ---
INDICATION: Abdominal pain COMPARISON: CT from same day FINDINGS: Supine and upright views of the abdomen show a nondistended bowel gas pattern. Large amount of stool is noted within the right colon. No abnormal air fluid levels or free intraperitoneal air is seen. No abnormal extraosseous calcifications are seen. Bony and soft tissue structures are within normal limits. No organomegaly is identified. Accompanying upright chest shows mild prominence of cardiac silhouette. Pulmonary vasculature, however, is within normal limits. The lungs are well aerated and clear. The mediastinum is normal in appearance. IMPRESSION: 1. Nonobstructive small bowel gas pattern. 2. Large amount of stool within the right colon. 3. Mild cardiomegaly. Dictated by: Dictated on workstation # [id number]
[2017-03-31 05:42] VITALS: BP 150/88
--- NOTE | 2017-03-31 06:37 | Diagnostic Imaging Report ---
PROCEDURE: CT urinary tract, rule out kidney stone. TECHNIQUE: Multiple contiguous axial images were obtained through the abdomen and pelvis without the use of intravenous contrast. INDICATION: Abdominal pain. COMPARISON: None FINDINGS: Included portions of the lung bases show small 4 mm micronodule within the included portions of right lower lobe. Mild cardiomegaly and mild hiatal hernia are also noted. CT abdomen: 5 mm calculus is identified within the proximal right ureter near the UPJ. As a result, there is moderate proximal hydronephrosis. Multiple additional nonobstructive renal calculi are also identified, bilaterally. No ureteral calculi are seen on the left. Additionally, there is no hydroureteronephrosis or other evidence of obstruction on the left. There is, however asymmetric atrophy of the left kidney. Multiple hypodense cysts are also noted on the left. The spleen, adrenal glands, pancreas, and liver have an unremarkable noncontrast CT appearance. There is cholelithiasis. Small bowel loops are nondistended. Normal appendix is identified. There are a few scattered colonic diverticuli, but no CT evidence of acute diverticulitis. There is no loculated fluid collection, free fluid, nor free air within the abdomen. No abnormal mesenteric or retroperitoneal adenopathy is seen. There is moderate calcified aortic and arterial atherosclerosis. Bony structures show no acute abnormalities. CT pelvis: Urinary bladder is unopacified. No calculi are seen within urinary bladder. There is no loculated fluid collection, free fluid, nor free air within the pelvis. No abnormal lymph nodes are seen. Bony structures show no acute abnormalities. IMPRESSION: 1. Moderate right-sided hydronephrosis secondary to 5 mm calculus at the right UPJ. 2. Multiple additional bilateral nonobstructive renal calculi. 3. Asymmetric atrophy of the left kidney. 4. Cholelithiasis. 5. Colonic diverticulosis, but no CT evidence of acute diverticulitis. 6. 4 mm micronodule within the included portions of the right lower lobe. Please see below for recommendations PULMONARY NODULE FOLLOW-UP Single nodule: <6 mm: * Low risk patient - no routine follow up * High risk patient - optional at 12 months Dictated by: Dictated on workstation # [id number]
== END 2017-03-31 05:43 | disposition home or self-care (01) ==
LOC: EDUNIT# 22:29 → ER 22:29
DX: N20.1 Calculus of ureter (principal); N39.0 Urinary tract infection, site not specified; K80.20 Calculus of gallbladder without cholecystitis without obstruction; E78.00 Pure hypercholesterolemia, unspecified; I10 Essential (primary) hypertension; E03.9 Hypothyroidism, unspecified; E11.9 Type 2 diabetes mellitus without complications; Z80.3 Family history of malignant neoplasm of breast; Z79.82 Long term (current) use of aspirin; Z87.442 Personal history of urinary calculi
CPT/HCPCS: 36415; 74022; 74176; 80053; 81000; 82150; 83690; 85025; 87077; 87088; 96361; 96374; 96375

== ENCOUNTER → 2017-04-04 | Outpatient (CLI) | payer MEDICARE, OTHER ==
[~2017-04-04] MED LIST changes: +HYDR-87 PO; +NITR-65 PO; +NITR100C10 PO; +ONDA4TAB11 SL; +ONDA4TAB8 PO; +TAMS0.4C2 PO; +TAMS0.4C98 PO
--- NOTE | 2017-04-04 16:49 | Diagnostic Imaging Report ---
INDICATION: Nephrolithiasis. FINDINGS: There is a 5 mm calcification projecting over the upper pole of the left kidney. There are no radiopaque stones seen projecting over the right renal shadow. There is a 6 mm stone in the right lower pelvis near the ureterovesical junction that has migrated from the distal ureter since 03/31/2017. IMPRESSION: A 6 mm stone appears to have migrated from the right ureter near the pelvic inlet down to the bladder or at the right ureterovesical junction. Dictated by: Dictated on workstation # [id number]
== END ==
LOC: RAD 13:43
PROVIDERS: ATTEND Urology
DX: N20.2 Calculus of kidney with calculus of ureter (principal)
CPT/HCPCS: 74018

== ENCOUNTER 2017-05-17 11:08 | Outpatient (RCR) | payer MEDICARE, OTHER ==
[~2017-05-17 11:08] MED LIST changes: -METF1000 PO; +METF10002 PO; -PIOG15TA22 PO; +PIOG15TA67 PO
[2017-05-17 12:55] LABS: CALCIUM 10.1 MG/DL (8.5-10.1); CREATININE SERUM 1.63 MG/DL (0.60-1.30); PHOSPHORUS 2.7 MG/DL (2.3-4.7); POTASSIUM 4.5 MMOL/L (3.6-5.0); URIC ACID 5.6 MG/DL (2.6-7.2)
[2017-05-19 15:14] LABS: CREAMAGNE 763 mg/day (500-1400)
== END 2017-08-15 | disposition home or self-care (01) ==
LOC: LAB 11:08
PROVIDERS: ATTEND Specialist
DX: N20.1 Calculus of ureter (principal)
CPT/HCPCS: 36415; 80048; 82340; 82507; 83735; 83945; 83970; 83986; 84075; 84100; 84105; 84550; 84560

== ENCOUNTER → 2017-11-23 | Outpatient (CLI) | payer MEDICARE, OTHER ==
[~2017-11-23] MED LIST changes: -AMLO10TA2 PO; +AMLO10TA6 PO; +METF-399 PO; -METF10002 PO; -OXYC-197 PO; +OXYC1TAB87 PO
--- NOTE | 2017-11-25 19:17 | Diagnostic Imaging Report ---
The current study was also evaluated with a Computer Aided Detection (CAD) system. 3-D tomosynthesis was also performed and reviewed. INDICATION: Digital mammogram bilateral screening. This study was compared to the prior exams of 11/16/2016, 10/16/2015 and 09/17/2014. At this time, there are no current complaints. FINDINGS: The fibroglandular tissue in both breasts is heterogeneously dense. This does limit the sensitivity of this exam. Overall, there does not appear to have been any significant change when compared to the prior study. No primary or secondary sign of malignancy is noted. 3D tomographic images fail to show any sign of malignancy. The stereotactic clip deep in the left breast seen previously is again evident and no different. IMPRESSION: There is no radiographic evidence for malignancy. ACR BI-RADS Category 1: Negative. Result letter will be mailed to the patient. Note: At least 10% of breast cancer is not imaged by mammography. Dictated by: Dictated on workstation # [id number]
== END ==
LOC: RAD 10:27
PROVIDERS: ATTEND Internal Medicine
DX: Z12.31 Encounter for screening mammogram for malignant neoplasm of breast (principal)
CPT/HCPCS: 77067

== ENCOUNTER → 2018-11-24 | Outpatient (CLI) | payer MEDICARE, OTHER ==
[~2018-11-24] MED LIST changes: -AMLO10TA6 PO; +AMLO10TA7 PO
--- NOTE | 2018-11-24 10:33 | Diagnostic Imaging Report ---
PROCEDURE: US Gallbladder. TECHNIQUE: Multiple Real-time grayscale images were obtained over the right upper quadrant in various projections. INDICATION: Cholelithiasis. COMPARISON: Correlation is made with the prior CT abdomen and pelvis study from 03/31/2017. FINDINGS: The liver is normal in size at 16.5 cm. There is a small cyst in the inferior right lobe measuring approximately 11 mm x 14 mm. The portal vein is patent and shows normal direction of flow. The gallbladder contains multiple stones. No wall thickening is seen. No pericholecystic fluid or biliary ductal dilatation is identified. The visualized pancreas is unremarkable. The right kidney is 11.3 cm in length. There is an exophytic cyst measuring 17 mm. Small echogenicities are present as well, consistent with nonobstructing calculi. No definite hydronephrosis is identified. There is no ascites. IMPRESSION: 1. Small liver cyst. 2. Cholelithiasis without evidence of acute cholecystitis. 3. Small right renal cysts as well as nonobstructing nephrolithiasis. No definite hydronephrosis is seen. Dictated by: Dictated on workstation # [id number]
--- NOTE | 2018-11-24 10:39 | Diagnostic Imaging Report ---
INDICATION: Routine screening. COMPARISON: 11/23/2017 and 11/16/2016. TECHNIQUE: 2D and 3D bilateral screening mammography was performed with CAD. FINDINGS: Both breasts remain heterogeneously dense, limiting the sensitivity of mammography. Benign calcifications bilaterally are again noted. The biopsy clip in the upper left breast is again noted. No mass or malignant appearing microcalcifications are seen. The axillae are unremarkable. IMPRESSION: No mammographic features suspicious for malignancy are identified. ACR BI-RADS Category 2: Benign findings. Result letter will be mailed to the patient. Note: At least 10% of breast cancer is not imaged by mammography. Dictated by: Dictated on workstation # [id number]
== END ==
LOC: RAD 07:57
PROVIDERS: ATTEND Internal Medicine
DX: Z12.31 Encounter for screening mammogram for malignant neoplasm of breast (principal); K80.20 Calculus of gallbladder without cholecystitis without obstruction; K76.89 Other specified diseases of liver; N28.1 Cyst of kidney, acquired; N20.0 Calculus of kidney
CPT/HCPCS: 76705; 77067

== ENCOUNTER → 2019-11-26 | Outpatient (CLI) | payer MEDICARE, OTHER ==
[~2019-11-26] MED LIST changes: -ENAL10TA PO; +ENAL10TA16 PO; +MULT-567 PO; -MULT1TAB69 PO; -TAMS0.4C98 PO; +TMSL.4C PO; +VITA-272 PO; -VITA400C58 PO
--- NOTE | 2019-11-26 19:35 | Diagnostic Imaging Report ---
EXAM: Digital mammogram, bilateral screening. COMPARISONS: 11/24/2018, 11/23/2017 and 11/16/2016. There are no current complaints FINDINGS: The fibroglandular tissue in both breasts is heterogeneously dense. This does limit the sensitivity of this exam. Overall, there does not appear to have been any significant change. The groups of micro and macrocalcifications in both breasts seen previously are again evident and not significantly changed. The stereotactic clip in the left breast is also again visualized and stable. There is no primary or secondary sign of malignancy noted. IMPRESSION: There is no evidence for malignancy. ACR category 1 ACR BI-RADS Category 1: Negative. Result letter will be mailed to the patient. Note: At least 10% of breast cancer is not imaged by mammography. Dictated by: Dictated on workstation # [id number]
== END ==
LOC: RAD 09:45
PROVIDERS: ATTEND Internal Medicine
DX: Z12.31 Encounter for screening mammogram for malignant neoplasm of breast (principal)
CPT/HCPCS: 77063; 77067

== ENCOUNTER → 2020-11-26 | Outpatient (CLI) | payer MEDICARE, OTHER ==
[~2020-11-26] MED LIST changes: +AMLO-251 PO; -AMLO10TA7 PO
--- NOTE | 2020-11-26 13:46 | Diagnostic Imaging Report ---
INDICATION: Routine screening. COMPARISON: 11/26/2019 and 11/24/2018. TECHNIQUE: 2D and 3D bilateral screening mammography was performed with CAD. FINDINGS: Both breasts remain heterogeneously dense, limiting the sensitivity of mammography. The parenchymal pattern is stable. Benign calcifications scattered throughout both breasts appear stable. A biopsy clip in the upper left breast is again noted. No new mass or malignant-appearing microcalcifications are seen. The axillae are unremarkable. IMPRESSION: No mammographic features suspicious for malignancy are identified. ACR BI-RADS Category 2: Benign findings. Result letter will be mailed to the patient. Note: At least 10% of breast cancer is not imaged by mammography. Dictated by: Dictated on workstation # [id number]
== END ==
LOC: RAD 09:45
PROVIDERS: ATTEND Internal Medicine
DX: Z12.31 Encounter for screening mammogram for malignant neoplasm of breast (principal)
CPT/HCPCS: 77063; 77067

== ENCOUNTER → 2021-12-09 | Outpatient (CLI) | payer MEDICARE, OTHER ==
[~2021-12-09] MED LIST changes: +HYDR-4085 PO; -HYDR-87 PO
--- NOTE | 2021-12-09 16:33 | Diagnostic Imaging Report ---
INDICATION: Routine screening. COMPARISON: 11/26/2020 and 11/26/2019. TECHNIQUE: 2D and 3D bilateral screening mammography was performed with CAD. FINDINGS: Both breasts are heterogeneously dense, limiting the sensitivity of mammography. Benign calcifications in both breasts appear stable. No dominant mass or malignant-appearing microcalcifications are seen. The axillae are unremarkable. IMPRESSION: No mammographic features suspicious for malignancy are identified. ACR BI-RADS Category 2: Benign findings. Result letter will be mailed to the patient. Note: At least 10% of breast cancer is not imaged by mammography. Dictated by: Dictated on workstation # [id number]
== END ==
LOC: RAD 14:44
PROVIDERS: ATTEND Internal Medicine
DX: Z12.31 Encounter for screening mammogram for malignant neoplasm of breast (principal)
CPT/HCPCS: 77063; 77067

== ENCOUNTER → 2022-12-31 | Outpatient (CLI) | payer MEDICARE, OTHER ==
[~2022-12-31] MED LIST changes: -ENAL10TA16 PO; +ENLP10T PO; -GLIP5TAB13 PO; +GLIP5TAB23 PO; +VITA-212 PO; -VITA-272 PO
--- NOTE | 2022-12-31 16:13 | Diagnostic Imaging Report ---
Indication: Routine screening. Correlation is made prior mammograms from 12/09/2021 and 11/26/2020. 2-D and 3-D bilateral screening mammography was performed with CAD. Both breasts are heterogeneously dense, limiting the sensitivity of mammography. Bilateral breast calcifications appears stable. There is a biopsy clip in the left breast. No mass or malignant-appearing microcalcifications are identified. Axillae are unremarkable. IMPRESSION: BI-RADS Category 2 No mammographic features suspicious for malignancy are identified. ACR BI-RADS Category 2: Benign findings. Result letter will be mailed to the patient. Note: At least 10% of breast cancer is not imaged by mammography. Dictated by: Dictated on workstation # [id number]
== END ==
LOC: RAD 14:41
PROVIDERS: ATTEND Internal Medicine
DX: Z12.31 Encounter for screening mammogram for malignant neoplasm of breast (principal)
CPT/HCPCS: 77063; 77067